=== PATIENT | male | born 1930 | race Caucasian/White ===

== ENCOUNTER 2016-09-25 09:09 | Inpatient (IN) | payer OTHER ==
[2016-09-25] VITALS (79 sets, daily range): BP systolic 32–189; BP diastolic 13–130; PULSE 0–165; RESP 0–41; Ht 172.7 cm; Wt 63.2 kg
[~2016-09-25] VITALS: Ht 172.7 cm; Wt 63.2 kg
[~2016-09-25 09:09] MED LIST: ATROPINE 1 MG/10 ML SYRINGE ONE; CA CHLORIDE 10% 10 ML SYRINGE ONE; DEXTROSE 50% 50 ML SYRINGE ONE; EPINEPHrine 0.1 MG/ML SYG ONE; NA BICARBONATE 8.4% 50 ML SYG ONE
[2016-09-25] MEDS: SOD CHLORIDE 0.9% 1,000 ML IV SCH ×3 (11:20→21:00)
[2016-09-25] MEDS ORDERED: NORepinephrine 8MG/250 ML (PMX 250 ML ONE (11:23)
[2016-09-25] MEDS ORDERED: VANCOMYCIN IV PER PHARMACY XX SCH (11:30)
[2016-09-25] MEDS ORDERED: ACETAMINOPHEN 325 MG TAB PO PRN (11:30)
[2016-09-25] MEDS ORDERED: NORepinephrine 8MG/250 ML (PMX 250 ML IV SCH (11:30)
[2016-09-25] MEDS ORDERED: EPINEPHrine 0.1 MG/ML SYG ONE (11:37)
[2016-09-25] MEDS ORDERED: EPINEPHrine 1 MG INJ IV STA (11:40)
[2016-09-25] MEDS ORDERED: PIPER-TAZO 3.375 GM IV (PMX) 100 ML IVPB SCH (12:00)
[2016-09-25] MEDS ORDERED: DIGOXIN 500 MCG INJ IV SCH (13:00)
--- NOTE | 2016-09-25 13:10 | RADRPT ---
PROCEDURE: XR Chest. CLINICAL INDICATION: Pneumonia/CHF. TECHNIQUE: Single frontal view of the chest was obtained COMPARISON: Chest x-ray 09/21/2016. Chest x-ray 09/17/2016 . FINDINGS: The trace right pleural effusion seen on the earlier study result. The heart remains enlarged. Ath erosclerotic calcifications are present in the aortic arch. There is an endotracheal tube positione d at T5. There is a poor inspiration. There are faint interstitial infiltrates in the bases of the lungs not identified on 09/17/2016. There is a fracture of the posterior lateral right sixth rib wh ich appears unchanged and is likely old. IMPRESSION: 1. Cardiomegaly. 2. Atherosclerosis aortic arch. 3. Satisfactory positioning of an endotracheal tube and T4. 4. Increased interstitial basilar infiltrates are noted when compared to 09/17/2016. No convincing evidence of CHF. 5. Resolution of the trace pleural effusion in the right minor fissure. RPTAT:AAJJ Physician Hernesto Date Time Electronically viewed and signed by Kwaku Mccoy Physician on 09/25/2016 13:09 JORGE/
[2016-09-25] MEDS: NORepinephrine 8MG/250 ML (PMX 250 ML IV SCH ×2 (13:15→15:53)
[2016-09-25] MEDS: VASOPRESSIN 60 UNIT in DEXTROSE 5% 57 ML IV SCH (13:24)
[2016-09-25 13:28] LABS: AADO2 Arterial 556.5 mmHg (7.0-24.0); Arterial Base Excess -5.4 mmol/L (-3.0-3); Arterial COHb 0.3 % (0.0-3.0); Arterial Fraction of Oxyhgb 96.1 % (93.0-99.0); Arterial HCO3 21.6 mmol/L (22.0-26.0); Arterial MetHb 0.1 % (0.0-1.5); Arterial Total Hemglobin 10.8 g/dl (12.0-18.0); MODE VENT - AC
[2016-09-25 14:03] LABS: HEMATOCRIT 32.1 % (42.0-52.0); HEMOGLOBIN 10.2 g/dl (14.0-18.0); MEAN CORPUSCULAR HEMOGLOBIN 31.4 pg (29.0-33.0); MEAN CORPUSCULAR HGB CONC 31.7 g/dl (32.0-37.0); MEAN CORPUSCULAR VOLUME 99.3 fl (82.0-101.0); MEAN PLATELET VOLUME 8.9 fl (7.4-10.4); PLATELET COUNT 221 10^3/UL (140-440); RED BLOOD COUNT 3.23 10^6/ul (4.70-6.10); RED CELL DISTRIBUTION WIDTH 20.8 % (11.5-14.5)
[2016-09-25 14:09] LABS: CONDITION 1; LH ANALYZER COMMENTS 1; SUSPECT 1; UNCORRECTED WBC 9.6 10^3/ul (4.8-10.8)
[2016-09-25 14:12] LABS: INR 3.36; PARTIAL THROMBOPLASTIN TIME 45.4 Sec (25.0-35.0); PROTIME 34.5 Sec (12.2-14.2); PT RATIO 2.7
[2016-09-25 14:14] LABS: ALBUMIN 2.3 g/dl (3.3-4.9)
[2016-09-25] MEDS: PHENYLephrine 20MG IN 250 ML 250 ML IV PRN ×2 (14:14→15:51)
[2016-09-25 14:15] LABS: POTASSIUM 4.6 mmol/L (3.5-5.1)
[2016-09-25 14:16] LABS: CREATININE 4.37 mg/dl (0.61-1.24)
[2016-09-25 14:17] LABS: ALBUMIN/GLOBULIN RATIO 0.79; BILIRUBIN,INDIRECT 0.3 mg/dl (0-1.1); BILIRUBIN,TOTAL 0.3 mg/dl (0.2-1.3); CALCIUM 6.7 mg/dl (8.4-10.2); TOTAL PROTEIN 5.2 g/dl (6.1-8.1)
[2016-09-25] MEDS: PIPER-TAZO 2.25 GM (PMX) 50 ML IVPB SCH ×2 (14:27→22:00)
[2016-09-25] MEDS: PANTOPRAZOLE 40 MG INJ IV SCH (14:28)
[2016-09-25] MEDS ORDERED: VANCOMYCIN 1.25 GM in SOD CHLORIDE 0.9% 250 ML IVPB SCH (14:30)
[2016-09-25 14:34] LABS: ADD UMIC YES; URINE BILIRUBIN (Dip) 1+ (NEGATIVE); URINE BLOOD (Dip) 3+ (NEGATIVE); URINE COLOR DK. YELLOW (YELLOW); URINE GLUCOSE (Dip) NEGATIVE (NEGATIVE); URINE KETONES (Dip) NEGATIVE (NEGATIVE); URINE LEUKOCYTE ESTERASE (Dip) 3+ (NEGATIVE); URINE NITRITE (Dip) NEGATIVE (NEGATIVE); URINE TOTAL PROTEIN (Dip) 2+ (NEGATIVE); URINE UROBILINOGEN (Dip) 0.2 E.U./dL (0.1-1.0)
[2016-09-25 14:48] LABS: BACTERIA,URINE MANY
[2016-09-25 14:50] LABS: TROPONIN-I 0.262 ng/ml (0.00-0.12)
[2016-09-25] MEDS ORDERED: PHENYLephrine 40 MG in DEXTROSE 5% 496 ML IV SCH (15:00)
[2016-09-25 15:46] LABS: ICTOTEST NEGATIVE (NEGATIVE)
[2016-09-25 16:01] LABS: THROMBIN TIME 16.8 SEC (13.8-19.1)
[2016-09-25 16:37] LABS: LYMPHOCYTES # 0.8 10^3/ul (0.8-2.9); MONOCYTE # 0.8 10^3/ul (0.3-0.9); NEUTROPHIL # 3.7 10^3/ul (1.6-7.5); OVALOCYTES FEW
[2016-09-25] MEDS: HYDROCORTISONE 100 MG INJ IV SCH ×2 (16:56→21:59)
--- NOTE | 2016-09-25 16:58 | CONS ---
[facility] INITIAL INPATIENT CONSULTATION NOTE DATE OF CONSULTATION: 09/25/2016 PLACE OF SERVICE: [facility] intensive care unit IMPRESSION AND PLAN: A very pleasant but unfortunate 86-year-old gentleman with multiple comorbid issues including acute on chronic kidney failure, atrial fibrillation on Coumadin and recent hospitalization for bowel obstruction requiring surgery and then gastrostomy and jejunostomy tube placement that had to be manipulated 2 days ago, who presented with septic shock with distended abdomen; most likely etiology is an intra-abdominal source. Given the patient' s recent code, he is too unstable for immediate surgical intervention. Our hope is that with aggressive medical management, we can stabilize the patient enough to perform a CT scan of the abdomen and pelvis. The differential also includes ischemia, although less likely given his high INR, as well as infectious enteritis and other nonsurgical issues that would hopefully get better with medical management. I explained all of this in detail to the patient's family and answered all their questions. I believe that they understand and I was very clear as to the grim prognosis and my extreme concern about the patient's overall outlook. With above assessment, I recommend the followin. Continue aggressive medical management. 2. Once medically stabilized, to obtain a STAT noncontrast CT of the chest, abdomen and pelvis. 3. If there is enough indication, or if the patient stabilizes enough, to go to the operating room for operative intervention. Thank you again for allowing us to participate in the care of this very pleasant gentleman, and his wonderful family. If there are any questions, please feel free to call me at [phone]. TOTAL VISIT TIME: 60 minutes of which more than half was spent in [id number] discussion with the patient's family at bedside, as well as coordination of care between multiple physicians and providers. DATE OF ADMISSION: 09/25/2016 HISTORY OF PRESENT ILLNESS: The patient is a very pleasant but unfortunate 86- year-old gentleman with multiple comorbid issues including recent surgery at [facility] for bowel obstruction that we believe is from possible scar tissue from his prior ulcer operation about 30 to 35 years ago, per patient's family's report, as well as renal insufficiency and need for percutaneous gastrostomy and jejunostomy tube, who was transferred from [facility] to intensive care unit after being found to be septic. The patient recently had a jejunostomy tube manipulation by Dr. Jimenez. He was off of the ventilator at [place] and was there mainly for rehabilitation purposes. Shortly after transfer to ICU, the patient coded and was intubated and resuscitated. I was kindly asked to consult. I had a chance to meet with the patient's family and I obtained most of my information from discussions with them, as well as careful review of available data and discussions with Dr. Armendariz. The patient himself has been having numerous problems over the last number of weeks, and has been essentially institutionalized for most part of August and currently in September. The patient himself could not speak to me and was unresponsive. PAST MEDICAL HISTORY 1. History of septic shock. 2. Vent-dependent acute respiratory failure. 3. Acute on chronic kidney disease. 4. Kidney stones. 5. Left-sided hydronephrosis due to an obstructing ureteral stone. 6. Atrial fibrillation and on Coumadin. 7. History of coagulopathy with an INR of greater than 5 in the past. 8. History of malnutrition due to low caloric intake. 9. History of small bowel obstruction as above, likely due to prior history of ulcer disease that required surgery approximately 30 to 35 years ago, status post recent exploration through a midline incision at [facility] by Dr. Harry Garcia with placement of G-tube and a J-tube per family's report (records missing at this point). 10. 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 11. History of Citrobacter and Klebsiella growing in the sputum and possible ventilator-associated pneumonia. 12. Status post gastrostomy and a separate jejunostomy tube placement as above. 13. History of dysphagia. 14. History of hemodialysis in the past, x2 episodes over the last few weeks. 15. 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 ALLERGIES: NO KNOWN DRUG ALLERGIES. MEDICATIONS 1. Protonix. 2. Midodrine. 3. Albuterol 4. Coumadin. 5. Metoprolol. 6. Bumex. SOCIAL HISTORY: The patient lived with his family prior to getting sick. He did smoke in the past, but quit smoking many years ago. No significant drinking and no intravenous drug use. FAMILY HISTORY: No mention of major medical, surgical or malignancy in the family. REVIEW OF SYSTEMS: Unable to obtain due to the patient's intubated state. PHYSICAL EXAMINATION GENERAL: The patient appears to be a very pleasant gentleman lying in bed , intubated and unresponsive. VITAL SIGNS: Currently he is afebrile. His pulse is 101. His FIO2 is 40% and his oxygen saturation is 100%. Blood pressure is 95/76 and pressors were briefly use, but currently are off. HEENT: Normocephalic and atraumatic. His eyes appear to be equally round and reactive to light. Sclerae are nonicteric. Oral cavity is clear but obscured by ET tube; oral mucosa appeared to be pink and moist. Dentition: poor. NECK: Supple. There is no lymphadenopathy or JVD. There is no submental, submandibular or supraclavicular lymphadenopathy. CHEST: Rises symmetrically with each breath; patient is breathing comfortably. There are no audible wheezes, rales or rhonchi on the gross exam. HEART: Pulse is tachy and faintly palpable on the left wrist. Capillary refill was sluggish. Carotid pulses are palpable bilaterally and symmetrically in the neck. EXTREMITIES: Lower extremities contain no pitting edema around the ankles bilaterally and symmetrically. ABDOMEN: Distended with a midline incision that has mica in place, and no evidence of erythema, edema, discharge or hernia. There does not appear to be any tenderness to palpation. There does not appear to be any peritoneal signs or guarding. G-tube is a huerta catheter that seems to be in snug against abdominal wall. J-tube is a regular J-tube and it too appears to be snug against abdominal wall. SKIN: Appears to be pink and feels warm to touch. NEUROLOGIC: Awake, alert, and follows commands appropriately. LABORATORY DATA: White blood cell count 8.0, hemoglobin 10, platelets 253. Electrolytes are normal with slightly low chloride at 92, CO2 of 34, creatinine 3.84, lactic acid 4.5, calcium 7.1, phosphorus 3.3, magnesium 2.8, total bilirubin 0.6, AST 44, ALT 21, alkaline phosphatase 134, albumin 3.2. TSH 3.3. INR 1.56 on 09/24/2016. Urinalysis was negative for nitrite or leukocyte esterase. IMAGING: The patient had an abdominal x-ray today that showed suggestion of pneumatosis in the right hemicolon, distal small bowel. Further evaluation with a CT scan was recommended. There was diffusely distended small and large bowel, and acute post-surgical changes were noted in the form of mica. Dictated By: TEOFILO LIMON/REYNOLD Conf#: [id number] DID#: [id number] CC: SHERMAN ARMENDARIZ MD;*EndCC* MTDD
[2016-09-25] MEDS: PHENYLephrine 40 MG in DEXTROSE 5% 496 ML IV PRN ×4 (17:03→23:17)
--- NOTE | 2016-09-25 17:10 | SP ---
DATE OF PROCEDURE: 09/25/2016 NAME OF PROCEDURE: Endotracheal intubation. INDICATION: Cardiopulmonary arrest. DESCRIPTION OF PROCEDURE: Patient was placed in the supine position, neck extended. Vocal cords we re visualized using Talita blade 4 laryngoscope. A size 7.5 endotracheal tube was passed through the vocal cords, secured at 23 cm to the lip. CO2 capnometer was immediately positive. The patien t had equal breath sounds bilaterally and confirmation of endotracheal tube placement was performed by chest x-ray. Post-intubation ABG has also been requested. Dictated By: SHERMAN CASTANEDA MD SV/REYNOLD Conf#: [id number] DID#: [id number]
--- NOTE | 2016-09-25 17:12 | CONS ---
DATE OF ADMISSION: 09/25/2016 DATE OF CONSULTATION: REASON FOR ADMISSION: Low blood pressure, septic shock. HISTORY OF PRESENT ILLNESS: This is an 86-year-old gentleman who has been transferred from [facility] where he had originally presented with abdominal pain, distention and found to be a smal l-bowel obstruction. Underwent laparotomy and subsequently required G and J-tube placement and his course was complicated by renal failure requiring transient hemodialysis. The patient has a remote history of peptic ulcer disease requiring surgery approximately 30 years ago. His course was also c omplicated by chronic atrial fibrillation, history of pneumonia, and generalized deconditioning. Th e patient recently had a J-tube manipulation following accidental removal by the patient himself. F ollowing J-tube replacement, the patient has had increasing abdominal distention and this morning carpio d severe hypotension, respiratory distress, altered mental status requiring transfer to intensive ca re unit. Here in our intensive care unit, the patient had an emergent central line placed in the [facility] femoral site, following which the patient became unresponsive with no palpable pulse. ACLS prot ocol was commenced. The patient received 10 minutes of CPR with 2 rounds of epinephrine, chest comp ressions for PEA with subsequent return of circulation. Since that time, he has been on multiple va sopressors, mechanical ventilation, aggressive volume resuscitation, broad-spectrum antibiotic cover age and surgical evaluation by Dr. Abhijit Hassan. Currently, patient's condition remains critical. PAST MEDICAL HISTORY: Also includes left-sided hydroureter, status post septic shock, G and J-tube placement as above. MEDICATIONS: Per chart include: 1. Protonix. 2. Midodrine. 3. Albuterol. 4. Coumadin, which is currently on hold. 5. Metoprolol currently. 6. Bumex. 7. Digoxin 250 mcg IV daily. 8. Atrovent. 9. Diltiazem. 10. ALLERGIES: NO KNOWN ALLERGIES. SOCIAL HISTORY: Nonsmoker, no alcohol, no history of drug use. FAMILY HISTORY: Noncontributory. SYSTEMS REVIEW: A 12-point review of systems currently unable to perform. PHYSICAL EXAMINATION: GENERAL: Elderly gentleman, intubated on mechanical ventilation with agonal respiration. VITAL SIGNS: Temperature 98, pulse is 100, blood pressure 100/40 on Levophed and vasopressin drips, orally intubated. HEENT: Dry mucous membranes. Pupils equal and reactive to light. NECK: Supple. No JVD or lymphadenopathy. CARDIAC: S1, S2, no added sounds or murmurs. CHEST: Diminished air entry both lung bases. ABDOMEN: Distended, no bowel sounds present. EXTREMITIES: No cyanosis, clubbing, 1+ edema. NEUROLOGIC: Unable to assess. LABORATORY DATA: White count 8, hemoglobin 10, platelets of 253. Lactic acid 4.5, BUN 119, creatin ine 3.84. Arterial blood gas pH 7.26, pCO2 of 48, pO2 of 107, bicarbonate was 21. INR was 1.56. U rine looks turbid and concentrated. Blood cultures and urine sample pending. IMPRESSION: 1. Cardiopulmonary arrest with likely anoxic brain injury. 2. Severe septic shock, probably secondary to intra-abdominal process. 3. History of bowel obstruction with gastrostomy and jejunostomy tube with recent jejunostomy tube manipulation replacement. 4. History of renal failure, now with worsening renal failure, likely secondary to acute tubular ne crosis injury. 5. History of hydroureter. 6. History of atrial fibrillation with rapid ventricular rate. The patient will require: 1. Aggressive volume resuscitation. 2. Broad-spectrum antibiotic coverage. Currently on vancomycin and Zosyn. ID consultation. 3. Surgical consultation called, Dr. Abhijit Hassan has currently evaluated the patient. Clearly, t he patient is currently not a surgical candidate. 4. CT head, chest, abdomen and pelvis when he is more stable. 5. Bilateral SCDs for DVT prophylaxis. 6. Protonix for GI prophylaxis. 7. I had an extensive discussion with the patient's family at bedside and I explained that prognosi s is very poor. He may not survive this episode. At present, they wish to continue all supportive measures including CPR if needed. Dictated By: SHERMAN FUNES/REYNOLD Conf#: [id number] DID#: [id number]
--- NOTE | 2016-09-25 17:48 | SP ---
DATE OF PROCEDURE: 09/25/2016 PROCEDURE: Central line placement. INDICATION: IV access, hypotension. DESCRIPTION OF PROCEDURE: Right femoral site was cleaned and prepped in the usual sterile manner us ing ultrasound guidance. Femoral vein was located. A large bore needle was passed into femoral vei n without resistance. A guidewire was then passed through large bore needle. Following Seldinger t echnique and dilatation, triple lumen catheter passed over guidewire. The guidewire was removed. T he patient had good flow through all 3 ports. All lines were flushed. The line was secured in plac e. The patient tolerated the procedure well without complication. Dictated By: SHERMAN FUNES/REYNOLD Conf#: [id number] DID#: [id number]
--- NOTE | 2016-09-25 18:34 | CONS ---
DATE OF ADMISSION: 09/25/2016 DATE OF CONSULTATION: HISTORY OF PRESENT ILLNESS: The patient is an 86-year-old male with multiple morbidity who had a re cent surgery for small-bowel obstruction at [facility]. The patient required a G-tube and J-tube, and was then subsequently transferred to [facility] for rehabilitation. Three days ago , I was called in that the J-tube was dislodged, so I asked the radiology doctor, Dr. Pizano so after the radiology, Dr. Alfred Guerra, to replace it under fluoroscopy guidance and Dr. Alfred Guerra replaced the G-tube under fluoroscopy guidance. The patient was fed through the G-tube the day before yester day. He was doing fine until this morning. The patient was in respiratory distress. The lactic ac id was high, blood pressure was low, so he was transferred to the intensive care unit for further ma nagement. In the intensive care unit, the patient coded twice. PAST MEDICAL HISTORY: Septic shock, vent dependent respiratory failure, kidney injury, kidney stone , left-sided hydronephrosis, atrial fibrillation on Coumadin, small-bowel obstruction status post poe rgery, status post G-tube and J-tube, J-tube dislodgement and new J-tube placement by Dr. Alfred Guerra 2 days ago. History of hemodialysis. ALLERGIES: NO KNOWN DRUG ALLERGIES. MEDICATIONS: All reviewed. SOCIAL HISTORY: Used to smoke. PHYSICAL EXAMINATION GENERAL: The patient is on vent, but has got labored breathing. CARDIOVASCULAR SYSTEM: No murmur. LUNGS: Air entry diminished. ABDOMEN: Soft but distended. LABORATORY DATA: INR is 3.36, glucose at the time the code was conducted was 23, now it is 115. WB C is 9, hematocrit is stable. The patient had a KUB done in the morning, which showed pneumotosis is in the right hemicolon and al so distal small bowel. He had a diffusely distended small and large bowel. IMPRESSION: 1. Septic shock. 2. Atrial fibrillation. 3. Vent dependent respiratory failure. 4. Anemia. 5. Change of J-tube by Dr. Alfred Guerra 2 days ago. 6. Status post small-bowel obstruction, status post surgery done at [facility] a few weeks ago. 7. Renal failure. PLAN: At this point, is conservative management, antibiotic outpatient. Prognosis is poor. May ne ed a rectal tube to decompress his colon. Continue all supportive measures. Dictated By: JOHN CHAO/REYNOLD Conf#: [id number] DID#: [id number]
--- NOTE | 2016-09-25 19:12 | RADRPT ---
Vent Rate: 123 bpm RR Interval: 0 msec LA Interval: 0 msec QRS Duration: 146 msec QT Interval: 322 msec QTC Interval: 460 msec P-R-T [place]: 0 - 23 - 1 degrees Atrial fibrillation with rapid ventricular response Right bundle branch block Abnormal ECG Electronically Signed By: Сергей Gamez [id number]
--- NOTE | 2016-09-25 21:00 | CONS ---
DATE OF ADMISSION: 09/25/2016 DATE OF CONSULTATION: 09/25/2016 TYPE OF CONSULTATION: Infectious Disease. REASON FOR CONSULTATION: Antibiotic management. HISTORY OF PRESENT ILLNESS: Waqas Ron is an unfortunate 86-year-old male who was transferred fro [facility] with septic shock. He had been transferred from [facility], where he pre sented with abdominal pain, distention and found to have a small-bowel obstruction. He underwent la parotomy, subsequently required G- and J-tube placement. His course was complicated by renal failur e requiring transient hemodialysis. The patient has a remote history of peptic ulcer disease requir ing surgery approximately 30 years ago. He has a history of chronic atrial fibrillation, a history of pneumonia and generalized deconditioning. The patient recently had a J-tube manipulation followe d by accidental removal by the patient himself. The J-tube was replaced. He had increasing abdomin al distention and this morning had severe hypotension, respiratory distress, altered mental status a nd required transfer to the intensive care unit. The patient had an emergency central line placed i n the right femoral vein. He became unresponsive, and a cardiac arrest was called. He received 10 minutes of CPR, 2 rounds of epinephrine, chest compression for PEA with subsequent return of circula tion. He is on Levophed and vasopressin, digitalis. He received 3 L of fluid. His G-tube was plac ed to drain. He was also seen by Dr. Abhijit Hassan in surgical consultation. The patient also has left-sided hydroureter, status post septic shock, G- and J-tube placement. He was supposed to be ta tiki to CT scan; results are not back yet. There is cardiomegaly, atherosclerotic aortic arch, [employer] position of an endotracheal tube. He was seen also by Dr. Jimenez, who felt he was in septic shock, atrial fibrillation, ventilator-dependent respiratory failure. He may need a rectal tube to decompress his colon. His white count is 9.0, H and H 10.2 and 32.1, platelet count 221,000. BUN and creatinine are 114 over 4.37. Lactic acid 13.3. His urine shows 3+ leukocyte esterase, greater than 200 white cells per high-power field. Blood cultures were ordered. The patient was started o n vancomycin and Zosyn. He will continue on this regimen until we get him out of septic shock and d etermine the etiology of the problem. He had blood cultures x2, urine and sputum. I will dictate m y findings to Dr. Armendariz, Dr. Hassan, Dr. Jimenez. Dictated By: ASHLEE CUNHA MD, JD/REYNOLD Conf#: [id number] DID#: [id number]
[2016-09-25 21:02] LABS: AADO2 Arterial 560.8 mmHg (7.0-24.0); Allen Test ACCEPTAB; Arterial Base Excess -25.7 mmol/L (-3.0-3); Arterial HCO3 8.1 mmol/L (22.0-26.0); MODE VENT - AC
[2016-09-25] MEDS ORDERED: NA BICARBONATE 8.4% 50 ML SYG ONE (21:13)
[2016-09-25] MEDS ORDERED: NA BICARBONATE 8.4% 50 ML SYG IV ONE (21:30)
[2016-09-25] MEDS ORDERED: SODIUM BICARBONATE (IV ADD) 150 MEQ in DEXTROSE 5%-0.45% NACL 1,000 ML IV SCH (21:30)
[2016-09-25] MEDS: SODIUM BICARBONATE (IV ADD) 150 MEQ in DEXTROSE 5%-0.45% NACL 1,000 ML IV SCH (21:53)
--- NOTE | 2016-09-25 23:25 | CONS ---
DATE OF ADMISSION: 09/25/2016 DATE OF CONSULTATION: This patient is an 86-year-old male who had been admitted to the intensive care unit. I was the [facility] room physician that was on at the time when the patient developed a pulseless electrical acti vity, and therefore I was consulted to the chani sandhu. When I arrived, the patient was already intub ated. He has had a recent surgical intervention, and surgical mica were present on the abdomen. The patient was hypotensive on vasopressors. The patient had received epinephrine, an 1 amp of bic arbonate and an amp of calcium chloride. I obtained an Accu-Chek, and the patient was hypoglycemic at 18. He received 2 amps of D50 with improvement of his blood glucose. I spoke with the family in light of his grave prognosis. However, they still stated they would prefer to continue the code. The patient did have return of spontaneous circulation. Dictated By: CHACHA GARRETT MD CP/REYNOLD Conf#: [id number] DID#: [id number]
[2016-09-26] VITALS (32 sets, daily range): BP systolic 0–130; BP diastolic 23–87; PULSE 0–80; RESP 0–40
[2016-09-26] MEDS: PHENYLephrine 40 MG in DEXTROSE 5% 496 ML IV PRN ×3 (01:21→06:05)
[2016-09-26] MEDS: VASOPRESSIN 60 UNIT in DEXTROSE 5% 57 ML IV SCH (01:22)
[2016-09-26] MEDS: SODIUM BICARBONATE (IV ADD) 150 MEQ in DEXTROSE 5%-0.45% NACL 1,000 ML IV SCH (05:26)
[2016-09-26] MEDS: PANTOPRAZOLE 40 MG INJ IV SCH (05:29)
[2016-09-26] MEDS: PIPER-TAZO 2.25 GM (PMX) 50 ML IVPB SCH (05:29)
[2016-09-26] MEDS: HYDROCORTISONE 100 MG INJ IV SCH (05:29)
[2016-09-26 05:36] LABS: ALBUMIN 1.5 g/dl (3.3-4.9)
[2016-09-26 05:39] LABS: BILIRUBIN,DIRECT 0.6 mg/dl (0.00-0.20); BILIRUBIN,INDIRECT 0.3 mg/dl (0-1.1); BILIRUBIN,TOTAL 0.9 mg/dl (0.2-1.3); TOTAL PROTEIN 3.5 g/dl (6.1-8.1)
[2016-09-26] MEDS ORDERED: NA BICARBONATE 8.4% 50 ML SYG IV STA (06:05)
[2016-09-26] MEDS: SOD CHLORIDE 0.9% 1,000 ML IV SCH (06:30)
[2016-09-26] MEDS ORDERED: EPINEPHrine 0.1 MG/ML SYG ONE (07:00)
--- NOTE | 2016-09-26 07:57 | CONS ---
Date/Time of Note Date/Time of Note DATE: 09/26/16 TIME: 07:55 Consultation Date/Type/Reason Admit Date/Time Sep 25, 2016 at 10:12 Initial Consult Date 24 HR Interval Summary Free Text/Dictation This is a CPR note. The patient had another cardiac arrest this morning around 6:45 AM but I was walking into the ICU the patient became pulseless and was immediately attended to at bedside. Patient did not have any pulse, CPR was initiated via protocol please see the run sheet for that ,patient received epinephrine 2 as well as sodium bicarb was on maxed out doses of Levophed, phenylephrine and vasopressin drips already. Rhythm remained asystole throughout CPR. Family was just outside of the room. Was apprised of the extremely poor prognosis in view of multiple cardiac arrest events since yesterday. After about 6 minutes of CPR all attempts were withdrawn. The family was apprised of the patient's demise. Exam/Review of Systems Vital Signs Vitals Vital Signs Date Time Temp Pulse Resp B/P Pulse Ox O2 Delivery O2 Flow Rate FiO2 09/26/16 06:30 37 24 69/43 Mechanical Ventilator 09/26/16 06:00 70 09/26/16 05:00 100 09/26/16 04:00 98.3 Intake and Output 09/25/16 09/25/16 09/26/16 15:00 23:00 07:00 Intake Total 139.85 ml 3341.30 ml 4182.95 ml Output Total 830 ml 70 ml 410 ml Balance -690.15 ml 3271.30 ml 3772.95 ml Results Result Diagram: 09/25/16 1345 09/25/16 1345 Results 24 hrs Laboratory Tests Test 09/25/16 13:00 09/25/16 13:15 09/25/16 13:45 09/25/16 15:45 Arterial Blood HCO3 21.6 L Arterial Blood Base Excess -5.4 L Arterial Blood Oxygen Saturation 96.5 Aryan Test N/A Arterial Blood Gas Puncture Site Right Brachial Arterial Blood Carboxyhemoglobin 0.3 Arterial Blood Date Drawn 09/25/2016 1:15:48 PM Arterial Blood Methemoglobin 0.1 Arterial Blood pCO2 (Temp correct) 48.9 H Arterial Blood pH (Temp corrected) 7.263 *L Arterial Blood pO2 (Temp corrected) 107.6 H Blood Gas A-a O2 Differential 556.5 H Blood Gas Actual Respiration Rate 33 Blood Gas Critical Value Read Back Blood Gas Low PEEP Setting 5.0 Blood Gas Modality VENT - AC Blood Gas Notified Time 09/25/2016 1:28:31 PM Blood Gas Notified Whom GIACOMO AMAYA Blood Gas Respiration Rate 24.0 Blood Gas Specimen Source Blood arterial Blood Gas Temperature 37.0 Blood Gas Tidal Volume 500.0 FiO2 100.0 Oxyhemoglobin Percent 96.1 Total Hemoglobin 10.8 L Urine Bacteria MANY Urine Bilirubin 1+ H Urine Clarity SLIGHTLY CLOUDY Urine Color DK. YELLOW Urine Epithelial Cells FEW Urine Glucose NEGATIVE Urine Hemoglobin 3+ H Urine Ictotest NEGATIVE Urine Ketones NEGATIVE Urine Leukocyte Esterase 3+ H Urine Microscopic RBC 5-10 Urine Microscopic WBC >200 Urine Nitrite NEGATIVE Urine Specific [place] 1.015 Urine Total Protein 2+ H Urine Triple Phosphate Crystals FEW Urine Urobilinogen 0.2 E.U./dL Urine pH 8.5 Activated Partial Thromboplast Time 45.4 H Alanine Aminotransferase (ALT/SGPT) 31 Albumin 2.3 L Albumin/Globulin Ratio 0.79 Alkaline Phosphatase 126 H Ammonia 66 H Anion Gap 25 #H Aspartate Amino Transf (AST/SGOT) 76 #H Band Neutrophils % 38.0 H Basophils # Basophils % Blood Morphology Comment Blood Urea Nitrogen 114 H Calcium Level 6.7 L Carbon Dioxide Level 24 # Chloride Level 95 L Creatinine 4.37 H Direct Bilirubin 0.00 Eosinophils # Eosinophils % Globulin 2.90 Glucose Level 96 Hematocrit 32.1 L Hemoglobin 10.2 L INR International Normalized Ratio 3.36 Indirect Bilirubin 0.3 Lactate Dehydrogenase 941 H Lactic Acid Level 13.3 *H 13.9 *H Lymphocytes # 0.8 Lymphocytes % 9.0 L Macrocytosis 1+ Mean Corpuscular Hemoglobin 31.4 Mean Corpuscular Hemoglobin Concent 31.7 L Mean Corpuscular Volume 99.3 Mean Platelet Volume 8.9 Metamyelocytes # 0.3 Metamyelocytes % 3.0 H Monocytes # 0.8 Monocytes % 9.0 Neutrophils # 3.7 Neutrophils % 41.0 Nucleated Red Blood Cells # Nucleated Red Blood Cells % 1.0 H Ovalocytes FEW Platelet Count 221 Potassium Level 4.6 Prothrombin Time 34.5 #H Prothrombin Time Ratio 2.7 Red Blood Count 3.23 L Red Cell Distribution Width 20.8 H Sodium Level 139 Thrombin Time 16.8 Total Bilirubin 0.3 Total Protein 5.2 #L Troponin I 0.262 *H White Blood Count 9.0 Test 09/25/16 15:56 09/25/16 16:03 09/25/16 19:05 09/25/16 19:27 Bedside Glucose 23 *L 115 131 Lactic Acid Level 22.4 *H Test 09/25/16 19:50 09/25/16 23:12 09/26/16 00:41 09/26/16 03:12 Arterial Blood HCO3 8.1 *L Arterial Blood Base Excess -25.7 L Aryan Test ACCEPTAB Arterial Blood Gas Puncture Site Left Radial Arterial Blood Date Drawn 09/25/2016 8:23:58 PM Arterial Blood pCO2 (Temp correct) 46.7 H Arterial Blood pH (Temp corrected) 6.856 *L Arterial Blood pO2 (Temp corrected) 105.5 H Blood Gas A-a O2 Differential 560.8 H Blood Gas Actual Respiration Rate 25 Blood Gas Critical Value Read Back Brent ROMERO RN Blood Gas Inspiratory Pressure 31.0 Blood Gas Low PEEP Setting 5.0 Blood Gas Modality VENT - AC Blood Gas Notified Time 09/25/2016 8:40:22 PM Blood Gas Notified Whom Blood Gas Respiration Rate 24.0 Blood Gas Specimen Source Blood arterial Blood Gas Temperature 37.0 Blood Gas Tidal Volume 550.0 FiO2 100.0 Lactic Acid Level > 24.0 *H > 24.0 *H Bedside Glucose 276 H Activated Partial Thromboplast Time 124.8 *H Alanine Aminotransferase (ALT/SGPT) 1934 H Albumin 1.5 L Alkaline Phosphatase 130 H Aspartate Amino Transf (AST/SGOT) 6235 H Direct Bilirubin 0.60 #H INR International Normalized Ratio > 6.00 *H Indirect Bilirubin 0.3 Platelet Count Pending Prothrombin Time > 100.0 #H Prothrombin Time Ratio 7.8 Thrombin Time 26.8 H Total Bilirubin 0.9 Total Protein 3.5 #L Test 09/26/16 05:03 Bedside Glucose 279 H Medications Medications Current Medications Vasopressin 60 unit/Dextrose 60 ml @ 1.2 mls/hr Q12H IV Last administered on t 01:22; Admin Dose 2.4 MLS/HR; Start 09/25/16 at 13:30 Norepinephrine/ Dextrose (Levophed/D5W) 500 ml @ 1.87 mls/hr TITRATE IV Last administered on 09/26/16 04:35; Admin Dose 56.25 MLS/HR; Start 09/26/16 at 00:00 Digoxin (Digoxin) 250 mcg DAILY@13 IV Last administered on 09/25/16 13:36; Admin Dose 250 MCG; Start 09/25/16 at 13:00 Pantoprazole (Protonix Iv) 40 mg DAILY@06 IV Last administered on 09/26/16 05: 29; Admin Dose 40 MG; Start 09/25/16 at 13:00 Acetaminophen 325 mg 325 mg Q6H PRN PO PAIN AND OR ELEVATED TEMP; Start at 11:30 Piperacillin Sod/ Tazobactam Sod 50 ml @ 100 mls/hr Q8 IVPB Last administered on 09/26/16 05:29; Admin Dose 100 MLS/HR; Start 09/25/16 at 14:00 Phenylephrine HCl/ Dextrose (Garrett-Synephrine/ D5W) 500 ml @ 75 mls/hr TITRATE PRN IV HYPOTENSION Last administered on 09/26/16 06:05; Admin Dose 225 MLS/HR; Start 09/25/16 at 15:00 Hydrocortisone 100 mg 100 mg Q8 IV Last administered on 09/26/16 05:29; Admin Dose 100 MG; Start 09/25/16 at 16:00 Sodium Chloride 1,000 ml @ 100 mls/hr Q10H IV Last administered on 09/25/16 21 :00; Admin Dose 100 MLS/HR; Start 09/25/16 at 20:30 Sodium Bicarbonate/ Dextrose/Sodium Chloride (Na Bicarb/D5-1/ 2ns) 1,150 ml @ 150 mls/hr Q7H40M IV Last administered on 09/26/16 05:26; Admin Dose 150 MLS/HR ; Start 09/25/16 at 21:30 DAKOTA ALMENDAREZ Sep 26, 2016 07:57
--- NOTE | 2016-11-11 10:00 | DES ---
DATE OF ADMISSION: 09/25/2016 DATE OF : 09/26/2016 ADMITTING DIAGNOSIS: Cardiac arrest/respiratory failure. CAUSE OF : Cardiac arrest/respiratory failure. HISTORY OF PRESENT ILLNESS: Mr. Ron is an 86-year-old white male who was admitted on 09/25/2016 to [facility] was brought into the ER after sustaining a cardiac arrest. The patien t had a prolonged course of CPR done, was subsequently admitted to ICU with the patient required ful l ventilator support as well as aggressive medical management including high dose pressor support; h owever, the patient did have multiple episodes of cardiac arrest and in the morning of 09/26/2016 at 6:45 a.m. the patient had another episode. The patient underwent full ACLS protocol, but could not be revived at that point. The patient was attended to by myself at bedside and was pronounced at 7:15 a.m. The family was notified. The patient did have multiple comorbidities including histo ry of prior laparotomy, G-tube placement, atrial fibrillation, pneumonia. Dictated By: DAKOTA MCCLURE/NTS Conf#: [id number] DID#: [id number]
== END 2016-09-26 07:05 | disposition expired | DRG 871 ==
LOC: ICU 10:12
PROVIDERS: ADMIT Internal Medicine Pulmonary Disease; ATTEND Internal Medicine Pulmonary Disease
PROC: 0BH17EZ Insertion of Endotracheal Airway into Trachea, Via Natural or Artificial Opening (ICD-10-PCS; principal; 2016-09-25)
PROC: 5A1935Z Respiratory Ventilation, Less than 24 Consecutive Hours (ICD-10-PCS; 2016-09-25)
PROC: 02HV33Z Insertion of Infusion Device into Superior Vena Cava, Percutaneous Approach (ICD-10-PCS; 2016-09-25)
PROC: 5A12012 Performance of Cardiac Output, Single, Manual (ICD-10-PCS; 2016-09-25)
PROC: 5A12012 Performance of Cardiac Output, Single, Manual (ICD-10-PCS; 2016-09-25)
PROC: 5A12012 Performance of Cardiac Output, Single, Manual (ICD-10-PCS; 2016-09-26)
DX: A41.9 Sepsis, unspecified organism (principal); R65.21 Severe sepsis with septic shock; N17.0 Acute kidney failure with tubular necrosis; J96.90 Respiratory failure, unspecified, unspecified whether with hypoxia or hypercapnia; Z99.11 Dependence on respirator [ventilator] status; G93.1 Anoxic brain damage, not elsewhere classified; K56.69 Other intestinal obstruction; K56.60 Unspecified intestinal obstruction; I95.9 Hypotension, unspecified; E87.2 Acidosis; Q61.3 Polycystic kidney, unspecified; I48.2 Chronic atrial fibrillation; Z93.1 Gastrostomy status; Z93.4 Other artificial openings of gastrointestinal tract status; D64.9 Anemia, unspecified; I12.9 Hypertensive chronic kidney disease with stage 1 through stage 4 chronic kidney disease, or unspecified chronic kidney disease; N18.9 Chronic kidney disease, unspecified; Z79.01 Long term (current) use of anticoagulants; Z87.891 Personal history of nicotine dependence; Z87.11 Personal history of peptic ulcer disease
CPT/HCPCS: 31500; 36600; 71010; 80053; 80076; 81001; 81003; 82140; 82803; 82962; 83605; 83615; 84484; 85025; 85049; 85610; 85670; 85730; 87040; 87075; 87081; 87086; 92950; 93005; 94002; 94003; 94660; 94770; C9113; J0171; J0461; J1720; J2370; J2543; J3370; J7030; J7042; J7050; J7060